=== PATIENT | female | born 1955 | race Caucasian/White ===

== ENCOUNTER 2017-08-30 09:03 | Outpatient (CLI) | payer BC | END 2017-08-30 09:04 | disposition home or self-care (01) | LOC: BICMAMMO 09:03 | PROVIDERS: ATTEND Obstetrics & Gynecology | DX: Z12.31 Encounter for screening mammogram for malignant neoplasm of breast (principal); Z80.3 Family history of malignant neoplasm of breast; Z85.72 Personal history of non-Hodgkin lymphomas | CPT/HCPCS: 77063; 77067 ==

== ENCOUNTER 2017-09-04 08:13 | Outpatient (CLI) | payer BC ==
[2017-09-04] MEDS ORDERED: Iopamidol 370 76% 100 ML VIAL ONE (11:09)
--- NOTE | 2017-09-04 11:55 | CT ---
CT CHEST AND ABDOMEN AND PELVIS PERFORMED WITH INTRAVENOUS CONTRAST ENHANCEMENT: HISTORY: Non-Hodgkin's lymphoma. Followup. COMPARISON: PET scan from 10/20/[address] examination from 05/10/2013. FINDINGS: CHEST: There are some parenchymal changes in the right middle lobe, which have developed since the p revious examination. This could represent some infiltrative lung changes. There are also somewhat l ess pronounced changes within the lingula, with a nodular pleural-based density seen along the anteri or chest wall, measuring approximately 8 to 9 mm in maximum dimension. These changes are definitely new, as compared to the most recent exam. There is no pleural effusion identified. There is no significant axillary adenopathy. Bilateral breast implants are seen. The capsule is codie cified bilaterally. There is no significant mediastinal or hilar lymphadenopathy. ABDOMEN: Hypodensities within the liver are most compatible with cysts. The spleen is borderline in size, measuring 12.2 cm in length. This appears to be fairly stable. The pancreas and gallbladder regions are unremarkable. The right and left adrenal glands and the right and left kidneys are normal in size. There are small periaortic lymph nodes seen along the left periaortic chain. These are not significantly enlarged a nd appear smaller as compared to the previous PET CT. Most of these are a centimeter or less in size . In addition, there is a soft tissue mass, which is directly posterior to the upper IVC, just later al to the right diaphragmatic victor hugo. This measures approximately 13 to 14 mm in short axis dimension. It represents a definite decrease in size, as compared to the prior exam, when I would estimate the size at approximately 3.7 cm. No significant mesenteric adenopathy. PELVIS: A moderate amount of stool is seen in the rectosigmoid region. No adenopathy, mass, or free fluid. IMPRESSION: 1. There has been development of some parenchymal change in the right middle lobe, which could repre sent an acute infiltrative process. It does not have the typical appearance of scar and it is not ma ss like in configuration. It also does not have the typical appearance of post radiation change. In addition, there are some changes within the lingula, with a pleural based area of nodularity along t he anterior chest wall, measuring 9 mm. These changes do not have the typical appearance of radiatio n change. They could represent some type of acute infiltrative process. Given the patient's history and the slightly nodular appearance to the pleural based change in the lingula, these warrant short term followup. I do not believe these changes are going to be visible by chest x-ray. A three month followup with CT, given the nodularity in the lingula, would probably be warranted. This could be p erformed as a noncontrast CT of the chest. 2. Definite interval decrease in the adenopathy posterior to the inferior vena cava. This is in the region where there is increased activity on PET scan. This has decreased in size from 3.7 cm in sigifredo meter to approximately 1.4 cm in short axis dimension. The left periaortic lymph nodes are also smal ler in size, as compared to the prior study. 3. Borderline spleen size. 4. Hepatic cyst. POS: [facility]
== END 2017-09-04 08:14 | disposition home or self-care (01) ==
LOC: CT 08:13
PROVIDERS: ATTEND Internal Medicine Hematology & Oncology
DX: C85.83 Other specified types of non-Hodgkin lymphoma, intra-abdominal lymph nodes (principal); R91.1 Solitary pulmonary nodule; K76.89 Other specified diseases of liver
CPT/HCPCS: 71260; 74177; 82565

== ENCOUNTER 2017-10-12 08:46 | Outpatient (CLI) | payer BC ==
--- NOTE | 2017-10-12 10:41 | RAD ---
TWO VIEWS CHEST: HISTORY: Dyspnea. TECHNIQUE: PA and lateral views of the chest are obtained. FINDINGS: Calcified breast implants are seen. The lung are well aerated. No evidence of active intrathoracic disease is seen. No evidence of effu sions, pneumonia, or pneumothorax is seen. 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 IMPRESSION: No evidence of acute intrathoracic abnormality seen. POS: [facility]
== END 2017-10-12 08:47 | disposition home or self-care (01) ==
LOC: RAD 08:46
PROVIDERS: ATTEND Internal Medicine Critical Care Medicine
DX: R06.00 Dyspnea, unspecified (principal)
CPT/HCPCS: 71046

== ENCOUNTER 2017-10-25 12:25 | Outpatient (CLI) | payer BC | END 2017-10-25 12:26 | disposition home or self-care (01) | LOC: BICCT 12:25 | PROVIDERS: ATTEND Internal Medicine Critical Care Medicine | DX: J18.9 Pneumonia, unspecified organism; Z87.81 Personal history of (healed) traumatic fracture; J32.0 Chronic maxillary sinusitis; R93.2 Abnormal findings on diagnostic imaging of liver and biliary tract; J32.9 Chronic sinusitis, unspecified | CPT/HCPCS: 71250 ==

== ENCOUNTER 2017-10-31 11:00 | Inpatient (IN) | payer BC ==
[2017-10-31] MEDS ORDERED: Phenergan/Codeine 10-6.25mg/5ml UDCUP PO PRN (11:48)
[2017-10-31 12:17] VITALS: BMI 20.9
[2017-10-31 13:13] LABS: #Eosinphils 0.3 thou/uL (0.0-0.7); #Lymphocytes 0.5 thou/uL (1.20-3.40); #Monocytes 0.5 thou/uL (0.11-0.59); #Neutrophils 18.1 thou/uL (1.40-6.50); %Basophils 0.1 % (0.0-1.0); %Eosinophils 1.5 % (0.0-10.0); %Lymphocytes 2.4 % (21.0-51.0); %Monocytes 2.6 % (0.0-10.0); %Neutrophils 93.4 % (42.0-75.0); Hemoglobin 12.4 g/dL (12.0-16.0); Mean Corpuscular HGB CONC 32.8 g/dL (32.0-36.0); Mean Corpuscular Hemoglobin 30.5 pg (27.0-31.0); Mean Corpuscular Volume 92.8 fl (81.0-99.0); Mean Platelet Volume 6.1 fL (7.4-10.4); Platelet Count 430 thou/uL (130-400); RBC Distribution Width 12.6 % (11.5-14.5); Red Blood Cell (RBC) Count 4.08 mill/uL (4.20-5.40); White Blood Cell (WBC) Count 19.4 thou/uL (4.8-10.8)
[2017-10-31 13:38] LABS: Anion Gap 15 mmol/L (10-20); BUN (Urea Nitrogen) 9 mg/dL (9.8-20.1); Calc. Creatinine Clearance 72 mL/min (70-130); Calcium 9.9 mg/dL (7.8-10.44); Carbon Dioxide 27 mmol/L (23-31); Chloride 102 mmol/L (98-107); Estimated GFR-MDRD 76; Glucose 133 mg/dL (80-115); Potassium 4.7 mmol/L (3.5-5.1); Sodium 139 mmol/L (136-145)
[2017-10-31] MEDS: Azithromycin 500 MG in Sodium Chloride 0.9% 250 ML 250 ML IVPB SCH (13:48)
--- NOTE | 2017-10-31 13:48 | CT ---
CT CHEST WITHOUT CONTRAST: HISTORY: Non-Hodgkin's lymphoma, in remission. The patient has pneumonia. COMPARISON: 09/04/2017 TECHNIQUE: Multiple contiguous axial images were obtained in a CT of the chest without contrast. Coronal reform ats were performed. FINDINGS: The heart is normal in size without a focal cardiac abnormality. No hilar or mediastinal lymphadenop athy is appreciated. There is consolidation of the majority of the left lower lobe. No obvious hilar mass is seen, but ev aluation is limited without IV contrast. There is a wedge shaped area of atelectasis in the lingula. This was seen on the prior exam but appears to have worsened. There are increased interstitial ed g markings in the posterior aspect of the right middle lobe, which have slightly improved, compared t o the prior examination. No pleural effusion is seen on either side. Hypodensities visualized in the liver are stable and likely represent cysts. The other visualized baez bdiaphragmatic structures are unremarkable. Degenerative changes are seen in the spine. The patient has calcified bilateral breast implants. IMPRESSION: 1. Left lower lobe pneumonia. No obvious hilar mass is seen to suggest malignancy with post obstruc tive atelectasis. A follow-up CT should be performed with contrast, after resolution of pneumonia, t o exclude an underlying mass. 2. Atelectasis seen in the right middle lobe and lingula. POS: [facility]
[2017-10-31] MEDS: Cefepime 2 GM, Syringe 2.5 ML in Sodium Chloride 0.9% 10 ML SLOW IVP SCH ×2 (13:49→23:09)
[2017-10-31] MEDS ORDERED: Albuterol Sulfate 2.5 mg/3 ml Neb NEB SCH (15:15)
[2017-10-31] MEDS: Phenergan/Codeine 10-6.25mg/5ml UDCUP PO PRN ×2 (17:07→23:09)
[2017-10-31] MEDS: Benzonatate 100 MG CAP PO SCH ×2 (17:08→21:07)
[2017-10-31] MEDS: Arformoterol 15 MCG/2 ML NEB NEB SCH (18:20)
--- NOTE | 2017-10-31 18:59 | HP ---
10/31/2017 HISTORY OF PRESENT ILLNESS: Ms. Stanley is a pleasant 62-year-old female, who was first seen by me in August with complaints of cough that has been present for several weeks. She was exposed to her grandchild with the flu and said she developed flu-like illness after that. She was told she had the flu earlier in the year and already taking Tamiflu when her granddaughter got sick. Since then, she had a cough and chest congestion. She has been treated with a Medrol Dosepak. She improved with that. She had no history of asthma and was not a smoker. Her sputum was clear at that time. She was also given sulfa for possible sinus infection by Dr. Grossman. I reviewed a recent CT, showing patchy areas of atelectasis bilaterally. I did not see anything that looked malignant or infectious. She was also having copious amounts of sinus drainage in the back of her throat, so we treated her with Arnuity for a post-viral cough with some prednisone, Tessalon Perles and nasal ipratropium. She failed to improve with the above and return to see me about a month later with ongoing cough. She was taken 10 days of Biaxin. She said she was somewhat better with a Biaxin, but not back to normal. She did not feel like the prednisone and the Arnuity given to her the previous month it helped. PFTs in the office done 10/12/2017 showed normal FEV1, normal forced vital capacity and normal mid flows. I felt at that time that she had a post-viral cough that was persistent, although I felt that she should have improved with steroids. I also felt that could possibly be sinus mediated. I recommended another round of prednisone. She went to fill the prednisone and got home at night and developed a fever of 102, so we called in Omnicef. She was seen by me in followup and really had not improved much. I recommended a CT of her chest, which surprisingly showed an alveolar infiltrate at her left base that was not present on her first chest radiograph. When she saw me initially, her chest radiograph was normal. I recommended that over the weekend since she has finished her course of Omnicef , we will just watch her. She had intermittent fever over the weekend, so she has been admitted to the hospital. PAST MEDICAL HISTORY: Remarkable for hysterectomy; asthma; and lymphoma, recently treated with Rituxan. SOCIAL HISTORY: She drinks wine occasionally. She is a nonsmoker. She does not use drugs. FAMILY HISTORY: Non contributory. ALLERGIES: She has no drug allergies. REVIEW OF SYSTEMS: 12 point system review otherwise remarkable only for green sputum that was not present when I met her. PHYSICAL EXAMINATION: VITAL SIGNS: Heart rate is 80, respiratory rate is 18, blood pressure is 115/60 , and oximetry is 95 on room air. HEENT: Pupils are equal. Sclerae is anicteric. NECK: Supple, no lymphadenopathy. LUNGS: Clear except for her left base where she has crackles. HEART: Regular rhythm. S1 and S2 are normal. ABDOMEN: Soft and nontender. EXTREMITIES: Without clubbing, cyanosis, or edema. NEUROLOGIC: Nonfocal. IMAGING: We recommended another CT because I could tell from today's chest radiograph whether or not she had an effusion (today's radiograph easily shows the infiltrate in her left base). CT did not show a loculated effusion. IMPRESSION AND PLAN: Community-acquired pneumonia with exposure recently to Bactrim, Omnicef and Biaxin. She will be placed on Maxipime and azithromycin. I doubt this is staphylococcus, but we will try to get sputum from her. We certainly can add vancomycin if she fails to improve with this. Blood cultures will be drawn. This is a 50 minute visit with greater than 50% of the time spent on the unit with coordination of care. KHADRA
[2017-10-31] MEDS: buPROPion 75 MG TAB PO SCH (21:01)
[2017-10-31] MEDS: guaiFENesin ER 600 MG TAB PO SCH (21:01)
[2017-11-01] MEDS: Phenergan/Codeine 10-6.25mg/5ml UDCUP PO PRN ×2 (06:15→21:04)
[2017-11-01] MEDS: Arformoterol 15 MCG/2 ML NEB NEB SCH ×2 (07:57→18:24)
[2017-11-01] MEDS: Benzonatate 100 MG CAP PO SCH ×3 (09:25→21:04)
[2017-11-01] MEDS: Famotidine 20 MG TAB PO SCH (09:26)
[2017-11-01] MEDS: guaiFENesin ER 600 MG TAB PO SCH ×2 (09:27→21:05)
[2017-11-01] MEDS: buPROPion 75 MG TAB PO SCH ×2 (09:27→21:05)
[2017-11-01] MEDS: Enoxaparin Sodium 40 MG/0.4 ML SYRINGE SC SCH (09:28)
[2017-11-01] MEDS: Azithromycin 500 MG in Sodium Chloride 0.9% 250 ML 250 ML IVPB SCH (12:21)
[2017-11-01] MEDS: Cefepime 2 GM, Syringe 2.5 ML in Sodium Chloride 0.9% 10 ML SLOW IVP SCH (13:10)
--- NOTE | 2017-11-01 16:54 | PRG ---
DATE OF SERVICE: 11/01/2017 SUBJECTIVE: Ms. Stanley is feeling a little bit better. She is coughing a little bit less. OBJECTIVE: VITAL SIGNS: Her temperature maximum was 100.0 at 8:00 p.m. last night. She has been afebrile since . Her sats are 95 on room air. LUNGS: She still has her crackles in the left base. HEART: Regular rhythm. ABDOMEN: Soft. IMPRESSION: Pneumonia, most likely bacterial. Her Gram stain of her sputum showed gram positive deanne ci in chains and clusters, gram-positive rods and gram negative rods. I doubt this is aspiration med iated, but I guess this could be polymicrobial aspiration related pneumonia. Her current antimicrobi al therapy hopefully will be adequate. I do not see an indication for vancomycin at this time. We w ill continue IV antibiotics. I encouraged her to ambulate and go sit outside, get some fresh air. S he is a very active woman and is getting "cabin fever" sitting in small room, so we will have her on the Oncology unit.
[2017-11-01] MEDS ORDERED: Polyethylene Glycol 3350 17 GM Packet PO SCH (17:45)
[2017-11-02] MEDS: Cefepime 2 GM, Syringe 2.5 ML in Sodium Chloride 0.9% 10 ML SLOW IVP SCH ×2 (00:19→12:53)
[2017-11-02] MEDS: Phenergan/Codeine 10-6.25mg/5ml UDCUP PO PRN ×3 (06:27→21:50)
[2017-11-02] MEDS: Arformoterol 15 MCG/2 ML NEB NEB SCH ×2 (07:28→17:59)
[2017-11-02 07:54] LABS: Legionella Urinary Ag Negative (Negative)
[2017-11-02 07:56] LABS: Anion Gap 18 mmol/L (10-20); BUN (Urea Nitrogen) 14 mg/dL (9.8-20.1); Calc. Creatinine Clearance 72 mL/min (70-130); Calcium 10.1 mg/dL (7.8-10.44); Carbon Dioxide 23 mmol/L (23-31); Chloride 103 mmol/L (98-107); Estimated GFR-MDRD 76; Glucose 134 mg/dL (80-115); Sodium 140 mmol/L (136-145)
[2017-11-02 08:15] LABS: Hemoglobin 12.9 g/dL (12.0-16.0); Mean Corpuscular HGB CONC 31.8 g/dL (32.0-36.0); Mean Corpuscular Hemoglobin 30.4 pg (27.0-31.0); Mean Corpuscular Volume 95.7 fl (81.0-99.0); Mean Platelet Volume 6.8 fL (7.4-10.4); Platelet Count 622 thou/uL (130-400); RBC Distribution Width 12.8 % (11.5-14.5); Red Blood Cell (RBC) Count 4.24 mill/uL (4.20-5.40); White Blood Cell (WBC) Count 16.5 thou/uL (4.8-10.8)
[2017-11-02 09:39] LABS: Band 7 % (5-11); Lymphocytes 10 % (21-51); MDiff Complete? YES; Monocytes 1 % (0-10); Neutrophil 82 % (42-75); PLT Morphology Comment Appears Increased
[2017-11-02] MEDS: Enoxaparin Sodium 40 MG/0.4 ML SYRINGE SC SCH (09:52)
[2017-11-02] MEDS: Famotidine 20 MG TAB PO SCH (09:52)
[2017-11-02] MEDS: buPROPion 75 MG TAB PO SCH ×2 (09:52→21:49)
[2017-11-02] MEDS: Benzonatate 100 MG CAP PO SCH ×3 (09:53→21:51)
[2017-11-02] MEDS: guaiFENesin ER 600 MG TAB PO SCH ×2 (09:53→21:50)
[2017-11-02] MEDS: Polyethylene Glycol 3350 17 GM Packet PO SCH (09:53)
--- NOTE | 2017-11-02 10:21 | PRG ---
DATE OF SERVICE: 11/02/2017 She says she feels the best she has felt in the last 2 months. She actually slept last night with no coughing. She denied shortness of breath. She ambulated outside to get some fresh air yesterday. PHYSICAL EXAMINATION: VITAL SIGNS: She is afebrile, heart rate 80, respiratory rate 16, oximetry is 96 on room air. Blood pressure 112/64. LUNGS: Remarkable for crackles at her left base. CARDIOVASCULAR: Regular rhythm. ABDOMEN: Soft. IMPRESSION: Pneumonia, unresponsive to outpatient therapy, possibly secondary to a drug resistant gr am positive. Her sputum cultures are negative. Her blood cultures are negative. White count today is down to 16.5, hemoglobin 12.9, platelets 622,000 which is I suspect a reactive t hrombocytosis. She has only 7% bands on her peripheral smear. Her electrolytes are normal. Her legionella panel was found on the outside chance that this is actually legionella which would exp marina why 2 of the 3 antibiotics she has received in the past did not work. In any event, we will con tinue with current care. I met with her and answered all of his questions.
[2017-11-02] MEDS: Azithromycin 500 MG in Sodium Chloride 0.9% 250 ML 250 ML IVPB SCH (12:20)
[2017-11-03] MEDS: Cefepime 2 GM, Syringe 2.5 ML in Sodium Chloride 0.9% 10 ML SLOW IVP SCH ×2 (00:14→12:43)
[2017-11-03 06:42] LABS: Hemoglobin 13.4 g/dL (12.0-16.0); Mean Corpuscular HGB CONC 32.6 g/dL (32.0-36.0); Mean Corpuscular Hemoglobin 30.2 pg (27.0-31.0); Mean Corpuscular Volume 92.6 fl (81.0-99.0); Mean Platelet Volume 6.1 fL (7.4-10.4); Platelet Count 580 thou/uL (130-400); RBC Distribution Width 12.7 % (11.5-14.5); Red Blood Cell (RBC) Count 4.44 mill/uL (4.20-5.40); White Blood Cell (WBC) Count 15.5 thou/uL (4.8-10.8)
[2017-11-03 07:23] LABS: Band 1 % (5-11); Lymphocytes 8 % (21-51); Monocytes 4 % (0-10); Neutrophil 87 % (42-75); PLT Morphology Comment Appears Increased
[2017-11-03 07:24] LABS: MDiff Complete? YES
[2017-11-03] MEDS: Arformoterol 15 MCG/2 ML NEB NEB SCH ×2 (07:31→18:16)
[2017-11-03] MEDS: Benzonatate 100 MG CAP PO SCH ×3 (08:44→21:29)
[2017-11-03] MEDS: buPROPion 75 MG TAB PO SCH ×2 (08:45→21:30)
[2017-11-03] MEDS: Famotidine 20 MG TAB PO SCH (08:49)
[2017-11-03] MEDS: Polyethylene Glycol 3350 17 GM Packet PO SCH (08:49)
[2017-11-03] MEDS: guaiFENesin ER 600 MG TAB PO SCH ×2 (08:49→21:29)
[2017-11-03] MEDS: Enoxaparin Sodium 40 MG/0.4 ML SYRINGE SC SCH (08:49)
[2017-11-03] MEDS: Azithromycin 500 MG in Sodium Chloride 0.9% 250 ML 250 ML IVPB SCH (12:50)
[2017-11-03] MEDS: Phenergan/Codeine 10-6.25mg/5ml UDCUP PO PRN (22:06)
[2017-11-03] MEDS: Bisacodyl 5 MG TAB PO PRN (22:12)
[2017-11-04] MEDS: Cefepime 2 GM, Syringe 2.5 ML in Sodium Chloride 0.9% 10 ML SLOW IVP SCH ×3 (00:58→20:48)
--- NOTE | 2017-11-04 05:07 | PRG ---
DATE OF SERVICE: 11/03/2017 OBJECTIVE: VITAL SIGNS: Ms. Stanley is afebrile, heart rate 81, respiratory rate 16, oximetry is 94% on room air , blood pressure 108/61. LUNGS: Unchanged. HEART: Unchanged. ABDOMEN: Unchanged. IMPRESSION AND PLAN: Community-acquired pneumonia, clinically improving. She says she feels the bes t she has felt so far, not to be awakened tonight. We documented that she is afebrile, so we will ch clarence her vital signs. I will put in communication order not to awaken her. She is constipated, so I have written an order for Dulcolax. We will continue to follow.
[2017-11-04 05:59] LABS: Band 9 % (5-11); Hemoglobin 11.8 g/dL (12.0-16.0); Lymphocytes 4 % (21-51); MDiff Complete? YES; Mean Corpuscular HGB CONC 33.1 g/dL (32.0-36.0); Mean Corpuscular Hemoglobin 30.5 pg (27.0-31.0); Mean Corpuscular Volume 92.1 fl (81.0-99.0); Mean Platelet Volume 6.1 fL (7.4-10.4); Monocytes 6 % (0-10); Neutrophil 81 % (42-75); Platelet Count 496 thou/uL (130-400); RBC Distribution Width 12.8 % (11.5-14.5); Red Blood Cell (RBC) Count 3.87 mill/uL (4.20-5.40); White Blood Cell (WBC) Count 13.5 thou/uL (4.8-10.8)
[2017-11-04] MEDS: Arformoterol 15 MCG/2 ML NEB NEB SCH ×2 (07:11→18:18)
[2017-11-04] MEDS: Benzonatate 100 MG CAP PO SCH ×3 (07:40→19:35)
[2017-11-04] MEDS: guaiFENesin ER 600 MG TAB PO SCH ×2 (07:40→19:35)
[2017-11-04] MEDS: Famotidine 20 MG TAB PO SCH (07:40)
[2017-11-04] MEDS: Enoxaparin Sodium 40 MG/0.4 ML SYRINGE SC SCH (07:40)
[2017-11-04] MEDS: Polyethylene Glycol 3350 17 GM Packet PO SCH (07:40)
[2017-11-04] MEDS: buPROPion 75 MG TAB PO SCH ×2 (07:41→19:42)
[2017-11-04] MEDS: Phenergan/Codeine 10-6.25mg/5ml UDCUP PO PRN ×2 (09:02→20:48)
[2017-11-04] MEDS: Azithromycin 500 MG in Sodium Chloride 0.9% 250 ML 250 ML IVPB SCH (11:33)
[2017-11-04] MEDS ORDERED: SODIUM CHLORIDE 0.9% IVPB PRN (13:57)
[2017-11-04] MEDS ORDERED: IBUPROFEN IVPB PRN (13:57)
--- NOTE | 2017-11-04 19:16 | PRG ---
DATE OF SERVICE: 11/04/2017 SUBJECTIVE: Ms. Sydney Stanley continues to improve. She says she is almost back to her baseline. Sh khang had minimal cough last night. She does have some joint aches for which she wants Advil. She does not like taking Phenergan with codeine for this as it makes her sleepy. OBJECTIVE: LUNGS: Remarkable still for crackles at her left base. HEART: Regular rhythm. ABDOMEN: Soft. IMPRESSION: 1. Pneumonia, community acquired. 2. Leukocytosis, improving. 3. ?Component of bronchiolitis obliterans-organizing pneumonia. 4. Anemia associated with blood draws. 5. Post-influenza cough that led up to this pneumonia. 6. History of lymphoma, off of treatment. PLAN: Continue with IV antibiotics. We will probably discharge on Monday morning.
[2017-11-04] MEDS: Bisacodyl 5 MG TAB PO PRN (20:48)
[2017-11-05] MEDS: Arformoterol 15 MCG/2 ML NEB NEB SCH ×2 (07:14→19:00)
[2017-11-05] MEDS: Cefepime 2 GM, Syringe 2.5 ML in Sodium Chloride 0.9% 10 ML SLOW IVP SCH (08:15)
[2017-11-05] MEDS: Famotidine 20 MG TAB PO SCH (08:15)
[2017-11-05] MEDS: Benzonatate 100 MG CAP PO SCH ×3 (08:15→19:55)
[2017-11-05] MEDS: predniSONE 20 MG TAB PO SCH (08:15)
[2017-11-05] MEDS: buPROPion 75 MG TAB PO SCH ×2 (08:15→19:55)
[2017-11-05] MEDS: Polyethylene Glycol 3350 17 GM Packet PO SCH (08:15)
[2017-11-05] MEDS: guaiFENesin ER 600 MG TAB PO SCH ×2 (08:15→19:55)
[2017-11-05] MEDS: Enoxaparin Sodium 40 MG/0.4 ML SYRINGE SC SCH (08:15)
--- NOTE | 2017-11-05 15:07 | PRG ---
DATE OF SERVICE: 11/05/2017 SUBJECTIVE: Ms. Stanley is in no distress. She was upset this morning, because her IV infiltrated. I have explained to her that there is no reason to be upset that we could probably stop her IV antibi otics and then I will switch to p.o. antibiotics and discharge in the morning. OBJECTIVE: VITAL SIGNS: She remains afebrile, oximetry is 97% on room air, heart rate is 86, blood pressure 110 /77. LUNGS: Still remarkable for crackles at her left base. HEART: Regular rhythm. ABDOMEN: Soft. Her lung exam is improved. IMPRESSION: 1. Pneumonia, community-acquired, clinically improving. 2. Status post multiple rounds of antibiotics as an outpatient. 3. Post-influenza cough unrelated to this pneumonia in my opinion. 4. History of lymphoma unrelated to her pulmonary infiltrates. This appeared fairly rapidly with th e quick one. She had a clear chest radiograph in August. PLAN: Hopeful discharge in the morning. We will start Augmentin today.
[2017-11-05] MEDS ORDERED: Ibuprofen 600 MG TAB PO PRN (19:37)
[2017-11-05] MEDS: Amoxicillin/Potassium Clav 875 MG TAB PO SCH (19:55)
[2017-11-05] MEDS: Phenergan/Codeine 10-6.25mg/5ml UDCUP PO PRN (20:20)
[2017-11-06] MEDS: Arformoterol 15 MCG/2 ML NEB NEB SCH (06:26)
[2017-11-06] MEDS: Benzonatate 100 MG CAP PO SCH (09:36)
[2017-11-06] MEDS: predniSONE 20 MG TAB PO SCH (09:36)
[2017-11-06] MEDS: buPROPion 75 MG TAB PO SCH (09:36)
[2017-11-06] MEDS: Amoxicillin/Potassium Clav 875 MG TAB PO SCH (09:36)
[2017-11-06] MEDS: Enoxaparin Sodium 40 MG/0.4 ML SYRINGE SC SCH (09:36)
[2017-11-06] MEDS: guaiFENesin ER 600 MG TAB PO SCH (09:37)
[2017-11-06] MEDS: Polyethylene Glycol 3350 17 GM Packet PO SCH (09:37)
[2017-11-06] MEDS: Famotidine 20 MG TAB PO SCH (09:42)
[2017-11-06 11:55] VITALS: BP 101/71; TEMP 98
--- NOTE | 2017-11-06 12:27 | DIS ---
DISCHARGE DIAGNOSIS: Pneumonia, community acquired, unclear pathogen. Please see history and physical for details as well as multiple dictated progress notes, but she has presented to the office with outpatient fever, had a new finding on her chest CT and radiograph. She had been treated with Omnicef and continued to have fever, so she was admitted for IV antimicrobial therapy. Her IV infiltrated yesterday, so we stopped Maxipime and placed her on Augmentin and predni sone. She continues to have dramatic improvement in her clinical symptoms and says her cough that wa s terrible. Prior to admission, it has almost gone. She will be discharged home on prednisone 40 fo r 4 days and then go to 20 mg a day until she sees me next week, she will take Augmentin 875 mg twice a day for a week, I follow her up in a week.
[2017-11-06 22:09] LABS: L.pneumophilia Abs <0.91 OD ratio (0.00-0.90)
== END 2017-11-06 12:00 | disposition home or self-care (01) | DRG 195 ==
LOC: ONC 11:00 → T4-A 11-03 16:18
PROVIDERS: ADMIT Internal Medicine Critical Care Medicine; ATTEND Internal Medicine Critical Care Medicine
DX: J15.9 Unspecified bacterial pneumonia (principal); D64.9 Anemia, unspecified; Z85.72 Personal history of non-Hodgkin lymphomas; D72.829 Elevated white blood cell count, unspecified; K59.00 Constipation, unspecified; Z90.710 Acquired absence of both cervix and uterus; J45.909 Unspecified asthma, uncomplicated
CPT/HCPCS: 36415; 71046; 71250; 80048; 85007; 85025; 85027; 86713; 87040; 87070; 87205; 87899; 94640; A4216; J0456; J0692; J1650; J2920; J7050; J7506; J7611

== ENCOUNTER 2017-11-29 09:35 | Outpatient (CLI) | payer BC ==
--- NOTE | 2017-11-29 11:03 | RAD ---
PA AND LATERAL CHEST RADIOGRAPH: Date: 11-29-17 History: Dyspnea. Comparison: 10-31-17 FINDINGS: Cardiac silhouette and pulmonary vasculature are within normal limits. There has been improvement in the left pleural effusion with only minimal amount of blunting to the left lateral costophrenic angle which could be related to either pleural thickening or very minimal residual pleural effusion. Paren chymal changes at the left lung base has also improved with only mild increased densities now present on this exam. This may be related to either residual pneumonia or atelectasis or scarring. Lungs are otherwise clear. There are calcified bilateral breast prostheses noted. The slightly displaced fract ure involving the left lateral 10th rib is again seen. No other interval change. IMPRESSION: 1. Improvement in the pleural and parenchymal changes, left lung base, which is likely related to imp rovement in left pleural effusion and atelectasis and/or pneumonia. There is a residual very tiny lef t pleural effusion as well as mild interstitial densities now seen which could be related to either s carring or residual infiltrate. 2. Stable, slightly displaced fracture involving the lateral left 10th rib. POS: [facility]
== END 2017-11-29 09:36 | disposition home or self-care (01) ==
LOC: RAD 09:35
PROVIDERS: ATTEND Internal Medicine Critical Care Medicine
DX: R06.00 Dyspnea, unspecified (principal); S22.32XA Fracture of one rib, left side, initial encounter for closed fracture
CPT/HCPCS: 71046

== ENCOUNTER 2018-02-07 09:16 | Outpatient (CLI) | payer BC ==
--- NOTE | 2018-02-07 10:24 | RAD ---
CHEST TWO VIEWS: HISTORY: Dyspnea. COMPARISON: 11/29/2017 FINDINGS: Two views of the chest show a normal sized cardiomediastinal silhouette. There is no evidence of con solidation, mass, or pleural effusion. The patient has calcified bilateral breast implants. IMPRESSION: No evidence of acute cardiopulmonary disease. POS: [facility]
== END 2018-02-07 09:17 | disposition home or self-care (01) ==
LOC: RAD 09:16
PROVIDERS: ATTEND Internal Medicine Critical Care Medicine
DX: R06.00 Dyspnea, unspecified (principal)
CPT/HCPCS: 71046

== ENCOUNTER 2018-03-07 08:55 | Outpatient (CLI) | payer BC ==
[2018-03-07] MEDS ORDERED: Iopamidol 370 76% 100 ML VIAL ONE (13:33)
== END 2018-03-07 08:56 | disposition home or self-care (01) ==
LOC: BICCT 08:55
PROVIDERS: ATTEND Internal Medicine Hematology & Oncology
DX: C85.83 Other specified types of non-Hodgkin lymphoma, intra-abdominal lymph nodes (principal); R22.2 Localized swelling, mass and lump, trunk
CPT/HCPCS: 71260; 74177

== ENCOUNTER 2018-06-08 13:56 | Outpatient (CLI) | payer BC ==
--- NOTE | 2018-06-08 15:34 | RAD ---
CHEST 2 VIEWS: Date: 06/08/18 HISTORY: Wheezing. COMPARISON: None. FINDINGS: Normal cardiac silhouette. Pulmonary vessels and hilum are normal. Costophrenic angles are clear. Hyp erinflation, without consolidation or mass. No pneumothorax or osseous abnormalities. Bilateral breas t augmentation is noted. IMPRESSION: Hyperinflation. No acute cardiopulmonary process. POS: [facility]
== END 2018-06-08 13:57 | disposition home or self-care (01) ==
LOC: BICRAD 13:56
PROVIDERS: ATTEND Internal Medicine Hematology & Oncology
DX: R06.2 Wheezing (principal)
CPT/HCPCS: 71046

== ENCOUNTER 2018-08-14 11:38 | Emergency (ER) | payer BC ==
[2018-08-14 13:02] LABS: ALT (SGPT) 9 U/L (8-55); AST (SGOT) 13 U/L (5-34); Albumin 4.6 g/dL (3.4-4.8); Alkaline Phosphatase 71 U/L (40-150); Anion Gap 16 mmol/L (10-20); BUN (Urea Nitrogen) 16 mg/dL (9.8-20.1); Bilirubin, Total 1.2 mg/dL (0.2-1.2); Calc. Creatinine Clearance 0 mL/min (70-130); Calcium 9.9 mg/dL (7.8-10.44); Carbon Dioxide 24 mmol/L (23-31); Chloride 100 mmol/L (98-107); Estimated GFR-MDRD 64; Glucose 153 mg/dL (80-115); Potassium 4.2 mmol/L (3.5-5.1); Protein, Total 6.6 g/dL (6.0-8.3); Sodium 136 mmol/L (136-145)
[2018-08-14 13:26] LABS: Mean Corpuscular Hemoglobin 31.1 pg (27.0-31.0); Mean Corpuscular Volume 94.1 fL (78.0-98.0); Mean Platelet Volume 7.7 fL (7.4-10.4); Platelet Count 287 thou/uL (130-400); RBC Distribution Width 11.8 % (11.5-14.5); Red Blood Cell (RBC) Count 4.82 mill/uL (4.20-5.40); White Blood Cell (WBC) Count 23.6 thou/uL (4.8-10.8)
[2018-08-14 13:37] LABS: Band 9 % (5-11); Lymphocytes 4 % (21-51); MDiff Complete? YES; Monocytes 5 % (0-10); Neutrophil 82 % (42-75); Platelet Morphology Comment Appears Adequate
[2018-08-14] MEDS ORDERED: Promethazine HCl 25 MG/ML VIAL ONE (13:41)
[2018-08-14] MEDS ORDERED: Ibuprofen 200 MG TAB ONE (13:41)
--- NOTE | 2018-08-14 14:49 | RAD ---
PA AND LATERAL CHEST: History: Low back pain, fever, chills. Comparison: 06-08-18 FINDINGS: Heart size is within normal limits. Bilateral breast augmentation is noted. Within the left lower lob e, there is a nodular appearing parenchymal density which along the posterior pleural surface, new wh en compared to 06-08-18. The fact that this density is new suggests that it is probably acute in natu re and probably related to an infiltrative process. Follow up chest films to resolution would be sincere mmended. IMPRESSION: Nodular appearing density in the left lower lobe, new as compared to an 06-08-18 study, probably rela kay to some nodular infiltrate. Follow up chest films would be recommended to exclude underlying mass . POS: [facility]
[2018-08-14] MEDS ORDERED: Azithromycin 500 MG VIAL ONE ×2 (15:22→16:22)
[2018-08-14] MEDS ORDERED: cefTRIAXone\\ROCEPHIN 2 GM VIAL ONE (15:22)
== END 2018-08-14 17:30 | disposition home or self-care (01) ==
LOC: ERS 11:38
DX: J18.9 Pneumonia, unspecified organism (principal); E86.0 Dehydration
CPT/HCPCS: 36415; 71046; 80053; 83605; 85025; 87040; 87804; 93005; 96365; 96367; J0456; J0696; J2550

== ENCOUNTER 2018-10-11 07:33 | Outpatient (CLI) | payer BC ==
--- NOTE | 2018-10-11 09:27 | CT ---
CT OF THE CHEST AND ABDOMEN AND PELVIS WITH IV CONTRAST: Date: 10/11/18 INDICATION: 63-year-old female with history of non-Hodgkin's lymphoma and intra-abdominal lymphadenopathy. CONTRAST: 70 mL [id number]. COMPARISON: Prior CT of the chest and abdomen and pelvis from [facility] dated 03/07/13 . FINDINGS: CHEST CT: No suspicious pulmonary nodule is evident. There is subsegmental volume loss within the lingula and l eft lower lobe. Some of this may be related to mild scarring as this was present on the prior exam. No pathologically enlarged lymph node is evident within the mediastinum, hilar, or axillary regions. There is a precarinal lymph node measuring 8.3 mm, which is stable. There are bilateral breast implants. No axillary lymphadenopathy is evident. ABDOMEN/PELVIS CT: There are numerous hepatic cysts, which are stable. The pancreas and adrenal glands appear within nor mal limits. The retrocaval soft tissue nodule, likely related to an enlarged lymph node, is relatively stable in size to the most recent comparison where it measured approximately 1.3 x 3.6 cm, now measures 1.3 x 3 .3 cm. There are other mildly prominent lymph nodes within the upper retroperitoneal region, but thes e are not pathologically enlarged. The spleen is normal in size, measuring 9.6 cm. No free fluid is demonstrated. There is a mild amount of retained stool within the colon. Small bowel is normal caliber. There is a normal appendix in the right lower quadrant. The bladder, rectum, and perirectal soft tissues appear within normal limits. No inguinal lymphadenopathy is evident. No acute osseous abnormality is evident. IMPRESSION: 1. Stable examination of the chest, abdomen, and pelvis when compared to the most recent comparison dated 03/07/18. 2. The retrocaval lymphadenopathy is stable in size, measuring 1.3 x 3.3 cm. POS: [facility]
== END 2018-10-11 07:34 | disposition home or self-care (01) ==
LOC: BICCT 07:33
PROVIDERS: ATTEND Internal Medicine Hematology & Oncology
DX: C85.83 Other specified types of non-Hodgkin lymphoma, intra-abdominal lymph nodes (principal); R59.0 Localized enlarged lymph nodes
CPT/HCPCS: 71260; 74177; 82565

== ENCOUNTER 2019-06-07 09:33 | Outpatient (CLI) | payer BC ==
--- NOTE | 2019-06-07 11:45 | MMO ---
Bilateral MAMMO Bilat Screen [facility]. CLINICAL HISTORY: Patient is 63 years old and is seen for screening. The patient has the following family history of breast cancer: mother, at age 61 and sister, at age 70. The patient has a history of lymphoma at age 57. VIEWS: The views performed were: bilateral craniocaudal; bilateral craniocaudal with tomosynthesis; bilateral mediolateral oblique; and bilateral mediolateral oblique with tomosynthesis. FILMS COMPARED: The present examination has been compared to prior imaging studies performed at on 06/03/2016 and 08/30/2017. This study has been interpreted with the assistance of computer-aided detection. MAMMOGRAM FINDINGS: There are scattered fibroglandular densities. Normal implants are present. There are no suspicious masses, calcifications or areas of architectural distortion. There are no suspicious masses, suspicious calcifications, or new areas of architectural distortion. IMPRESSION: THERE IS NO MAMMOGRAPHIC EVIDENCE OF MALIGNANCY. A ROUTINE FOLLOW-UP MAMMOGRAM IN 1 YEAR IS RECOMMENDED. THE RESULTS OF THIS EXAM WERE SENT TO THE PATIENT. ACR BI-RADS Category 2 - Benign finding MAMMOGRAPHY NOTE: 1. A negative mammogram report should not delay a biopsy if a dominant of clinically suspicious mass is present. 2. Approximately 10% to 15% of breast cancers are not detected by mammography. 3. Adenosis and dense breasts may obscure an underlying neoplasm. Reported by: NIKOS ADAMS MD Electonically Signed: [id number]
== END 2019-06-07 09:34 | disposition home or self-care (01) ==
LOC: BICMAMMO 09:33
PROVIDERS: ATTEND Internal Medicine Hematology & Oncology
DX: Z12.31 Encounter for screening mammogram for malignant neoplasm of breast (principal); Z80.3 Family history of malignant neoplasm of breast
CPT/HCPCS: 77063; 77067

== ENCOUNTER 2019-06-26 14:29 | Outpatient (CLI) | payer BC, MEDICARE ==
--- NOTE | 2019-06-26 15:02 | RAD ---
PA AND LATERAL VIEWS CHEST: HISTORY: Chest pain, cough, dyspnea. FINDINGS: The heart size is normal. The lungs are expanded without lobar consolidation, pneumothoraces, or ple ural effusions. No acute osseous abnormalities are seen. IMPRESSION: No radiographic evidence of acute cardiopulmonary process. POS: [facility]
== END 2019-06-26 14:30 | disposition home or self-care (01) ==
LOC: RAD 14:29
PROVIDERS: ATTEND Internal Medicine Critical Care Medicine
DX: R06.00 Dyspnea, unspecified (principal)
CPT/HCPCS: 71046

== ENCOUNTER 2019-07-08 07:36 | Outpatient (CLI) | payer MEDICARE, BC ==
--- NOTE | 2019-07-08 09:21 | CT ---
EXAM: CT chest, abdomen, and pelvis with IV contrast: HISTORY: Non-Hodgkin's lymphoma. COMPARISON: 10/11/2018 FINDINGS: CT THORAX: Lungs: Linear area of scarring is again seen at the left lung base. No pulmonary nodule or mass is se en. Pleura: No pleural effusion. Lymph nodes: No lymphadenopathy. Mediastinum: No acute process of the mediastinal structures. Chest wall: Peripherally calcified bilateral breast prostheses are again noted. CT ABDOMEN AND PELVIS: Liver: Small hypodense lesions are again seen in each lobe of the liver which are difficult to charac terize due to small size but statistically likely represent hepatic cysts. Gallbladder: Within normal limits. Pancreas: Within normal limits. Spleen: Within normal limits. Adrenal glands: Within normal limits. Kidneys: Within normal limits. Urinary Bladder: The urinary bladder is unremarkable. Reproductive organs: Within normal limits for patient's age. Bowel: Normal in caliber. Adenopathy:Again noted is the retrocaval area of soft tissue density likely related to lymphadenopath y which is overall similar to the prior exam and stable in size measuring 3.3 cm x 1.3 cm. Small mildly prominent retrocrural lymph node is also again seen measuring 1.1 cm in short axis dimension. Additional mildly prominent periaortic lymph nodes are also again seen stable from prior exam which are not enlarged by CT size criteria. No new enlarged lymph nodes are seen. Peritoneum: No free fluid or fluid collection is seen. No free intraperitoneal gas is identified. Abdominal wall: No abnormalities seen. Osseous structures: Degenerative changes are seen in the lower lumbar spine. No lytic or sclerotic os seous lesion is identified. IMPRESSION: Stable CT scan of the chest, abdomen, and pelvis including stable retrocaval area of soft tissue dens ity likely related to enlarged lymph node with stable mildly prominent retrocrural lymph node and mildly prominent periaortic lymph nodes which are not enlarged by CT size criteria.
[2019-07-08] MEDS ORDERED: Iopamidol-370 76% 500 ML 1 ML ONE (11:32)
== END 2019-07-08 07:37 | disposition home or self-care (01) ==
LOC: BICCT 07:36
PROVIDERS: ATTEND Internal Medicine Hematology & Oncology
DX: C85.83 Other specified types of non-Hodgkin lymphoma, intra-abdominal lymph nodes (principal)
CPT/HCPCS: 71260; 74177; 82565; Q9967

== ENCOUNTER 2019-09-03 13:20 | Outpatient (CLI) | payer MEDICARE, BC ==
--- NOTE | 2019-09-03 13:39 | RAD ---
EXAM: Chest 2 views: HISTORY: Dyspnea COMPARISON: 06/26/2019 FINDINGS: There is a normal-sized cardiomediastinal silhouette. There is no evidence of consolidation, mass, or pleural effusion. Calcified bilateral breast implants are seen. The bones are unremarkable. IMPRESSION: No evidence of acute cardiopulmonary disease
== END 2019-09-03 13:21 | disposition home or self-care (01) ==
LOC: RAD 13:20
PROVIDERS: ATTEND Internal Medicine Critical Care Medicine
DX: R06.00 Dyspnea, unspecified (principal)
CPT/HCPCS: 71046

== ENCOUNTER 2020-06-29 08:32 | Outpatient (CLI) | payer MEDICARE, BC ==
--- NOTE | 2020-06-29 10:01 | CT ---
CHEST AND ABDOMEN AND PELVIC CT SCAN WITH IV CONTRAST: HISTORY: Non-Hodgkin's lymphoma intraabdominal lymph nodes. COMPARISON: Chest, abdomen, and pelvic CT 07/08/2019. FINDINGS: Minimal linear scarring and some pleural-based scarring in the medial left lung base. No mediastinal mass or adenopathy. No pleural or pericardial effusion. Small stable liver cysts. Stable minimal increased soft tissue density around the region of the upper cava and surrounding retr operitoneum, all of which are stable representing some residual scarring from prior milena disease vale t has been treated. Small periaortic and retroperitoneal lymph nodes. Normal-size spleen. No renal hydronephrosis or renal mass. No abnormal fluid collection within the abdomen or pelvis. No eviden ce for bone metastasis. IMPRESSION: Stable appearance of the abdomen and pericaval soft tissue. Small stable paraaortic and retroperiton eal lymph nodes. Minimal scarring in the left lung base. Small stable liver cyst. No evidence for a metastasis. POS: [facility]
[2020-06-29] MEDS ORDERED: Iopamidol-370 76% 500 ML 1 ML ONE (12:58)
== END 2020-06-29 08:33 | disposition home or self-care (01) ==
LOC: BICCT 08:32
PROVIDERS: ATTEND Internal Medicine Hematology & Oncology
DX: C85.83 Other specified types of non-Hodgkin lymphoma, intra-abdominal lymph nodes (principal); K76.89 Other specified diseases of liver; J98.4 Other disorders of lung
CPT/HCPCS: 71260; 74177; 82565; Q9967

== ENCOUNTER 2021-06-29 08:32 | Outpatient (CLI) | payer MEDICARE, BC ==
[2021-06-29] MEDS ORDERED: ISOVUE-370 76% 1 ML ONE (13:37)
== END 2021-06-29 08:33 | disposition home or self-care (01) ==
LOC: BICCT 08:32
PROVIDERS: ATTEND Internal Medicine Hematology & Oncology
DX: C85.83 Other specified types of non-Hodgkin lymphoma, intra-abdominal lymph nodes (principal)
CPT/HCPCS: 71260; 74177; 82565

== ENCOUNTER 2021-08-17 14:09 | Outpatient (CLI) | payer MEDICARE, BC | END 2021-08-17 14:10 | disposition home or self-care (01) | LOC: CTENTCT 14:09 | PROVIDERS: ATTEND Specialist | DX: J32.8 Other chronic sinusitis (principal) | CPT/HCPCS: 70486 ==

== ENCOUNTER 2021-12-02 10:25 | Outpatient (CLI) | payer MEDICARE, BC | END 2021-12-02 10:26 | disposition home or self-care (01) | LOC: BICMAMMO 10:25 | PROVIDERS: ATTEND Obstetrics & Gynecology | DX: Z12.31 Encounter for screening mammogram for malignant neoplasm of breast (principal); Z98.82 Breast implant status; Z85.72 Personal history of non-Hodgkin lymphomas; Z80.3 Family history of malignant neoplasm of breast | CPT/HCPCS: 77063; 77067 ==

== ENCOUNTER 2022-08-12 08:32 | Outpatient (CLI) | payer MEDICARE, BC ==
[2022-08-12] MEDS ORDERED: Iopamidol-370 76% 500 ML 1 ML ONE (09:49)
== END 2022-08-12 08:33 | disposition home or self-care (01) ==
LOC: BICCT 08:32
PROVIDERS: ATTEND Internal Medicine Hematology & Oncology
DX: C85.83 Other specified types of non-Hodgkin lymphoma, intra-abdominal lymph nodes (principal); D80.1 Nonfamilial hypogammaglobulinemia
CPT/HCPCS: 71260; 74177; 82565

== ENCOUNTER 2023-06-27 08:37 | Outpatient (CLI) | payer MEDICARE, BC ==
[2023-06-27] MEDS ORDERED: Iopamidol 370 76% 100 ML VIAL ONE (09:32)
== END 2023-06-27 08:38 | disposition home or self-care (01) ==
LOC: BICCT 08:37
PROVIDERS: ATTEND Internal Medicine Hematology & Oncology
DX: C85.83 Other specified types of non-Hodgkin lymphoma, intra-abdominal lymph nodes (principal); K76.89 Other specified diseases of liver
CPT/HCPCS: 71260; 74177; 82565; Q9967

== ENCOUNTER 2024-07-01 08:34 | Outpatient (CLI) | payer MEDICARE ==
[2024-07-01] MEDS ORDERED: Iopamidol 370 76% 100 ML VIAL ONE (11:52)
== END 2024-07-01 08:35 | disposition home or self-care (01) ==
LOC: BICCT 08:34
PROVIDERS: ATTEND Internal Medicine Hematology & Oncology
DX: C85.83 Other specified types of non-Hodgkin lymphoma, intra-abdominal lymph nodes (principal); R91.8 Other nonspecific abnormal finding of lung field; N32.89 Other specified disorders of bladder; J98.11 Atelectasis; K76.89 Other specified diseases of liver; Z90.710 Acquired absence of both cervix and uterus; Z98.82 Breast implant status
CPT/HCPCS: 36415; 71260; 74177; 82565

== ENCOUNTER 2025-06-23 12:40 | Outpatient (CLI) | payer MEDICARE ==
[2025-06-23] MEDS ORDERED: Iopamidol 370 76% 100 ML VIAL ONE (12:54)
[2025-06-23 13:32] LABS: Estimated GFR - POC 97.0
== END 2025-06-23 12:41 | disposition home or self-care (01) ==
LOC: CT 12:40
PROVIDERS: ATTEND Internal Medicine Hematology & Oncology
DX: Z13.29 Encounter for screening for other suspected endocrine disorder (principal); C85.83 Other specified types of non-Hodgkin lymphoma, intra-abdominal lymph nodes; D80.1 Nonfamilial hypogammaglobulinemia; R91.8 Other nonspecific abnormal finding of lung field; R93.2 Abnormal findings on diagnostic imaging of liver and biliary tract; Z79.899 Other long term (current) drug therapy
CPT/HCPCS: 36415; 71260; 74177; 82565; Q9967